=== PATIENT | female | born 1950 | race Two or more races ===

== ENCOUNTER 2022-06-15 12:49 | Emergency (ER) | payer OTHER ==
[~2022-06-15] VITALS: Ht 152.4 cm; Wt 66.7 kg
[2022-06-15] MEDS ORDERED: ROSUVASTATIN CA20 MG PO (13:39)
[2022-06-15] MEDS ORDERED: LOSARTAN-HCTZ1 EACH PO (13:39)
[2022-06-15] MEDS ORDERED: VISINE DRY EYE30 ML OP (15:36)
== END 2022-06-15 15:49 | disposition home or self-care (01) ==
LOC: ER 12:49
DX: H11.32 Conjunctival hemorrhage, left eye (principal); I10 Essential (primary) hypertension

== ENCOUNTER 2023-06-10 06:18 | Emergency (ER) | payer OTHER ==
[~2023-06-10] VITALS: Ht 162.6 cm; Wt 79.4 kg
[~2023-06-10 06:18] MED LIST: LOSARTAN-HCTZ1 EACH PO; ROSUVASTATIN CA20 MG PO; VISINE DRY EYE30 ML OP
[2023-06-10 08:58] LABS: HEMATOCRIT 43.4 % (36.0-45.00); HEMOGLOBIN 14.7 g/dL (12.0-15.00); MEAN CELL VOLUME 88.6 fL (80.00-100.00); MEAN CORPUSCULAR HGB CONC 33.9 g/dl (32.0-36.0); PLATELET COUNT 347 K/uL (150-450); RED CELL DISTRIBUTION WIDTH 14.1 % (11.5-14.5)
[2023-06-10] MEDS ORDERED: VENTOLIN HFA18 GM IH (09:22)
[2023-06-10] MEDS ORDERED: PAXLOVID 300-11 EAC1 PO (09:22)
[2023-06-10] MEDS ORDERED: TUSNEL LIQUID178 ML PO (09:22)
== END 2023-06-10 09:44 | disposition home or self-care (01) ==
LOC: ER 06:18
PROVIDERS: General Practice
DX: U07.1 COVID-19 (principal); I10 Essential (primary) hypertension
CPT/HCPCS: 36415; 96372; 99284; J1100

== ENCOUNTER → 2023-06-26 | Emergency (ER) | payer OTHER ==
[~2023-06-26] VITALS: Ht 154.9 cm; Wt 66.7 kg
[~2023-06-26] MED LIST changes: +PAXLOVID 300-11 EAC1 PO; +TUSNEL LIQUID178 ML PO; +VENTOLIN HFA18 GM IH
[2023-06-26 09:07] LABS: HEMATOCRIT 44.2 % (36.0-45.00); HEMOGLOBIN 15.5 g/dL (12.0-15.00); MEAN CELL VOLUME 85.2 fL (80.00-100.00); MEAN CORPUSCULAR HEMOGLOBIN 29.8 pg (27.00-32.0); RED BLOOD COUNT 5.19 M/uL (4.00-6.00); RED CELL DISTRIBUTION WIDTH 13.7 % (11.5-14.5)
[2023-06-26 09:26] LABS: CALCIUM 9.3 mg/dL (8.5-10.1); CREATININE SERUM 0.72 mg/dL (0.55-1.02); GFR 80.08; POTASSIUM 3.01 mEq/L (3.5-5.1)
[2023-06-26 09:40] LABS: PLATELET COUNT 98 K/uL (150-450)
== END | disposition home or self-care (01) ==
LOC: ER 08:27
PROVIDERS: Emergency Medicine
DX: K52.89 Other specified noninfective gastroenteritis and colitis (principal)

== ENCOUNTER 2024-10-06 15:52 | Outpatient (CLI) | payer OTHER | END 2024-10-06 15:59 | disposition home or self-care (01) | LOC: RAD 15:52 | PROVIDERS: ATTEND Internal Medicine | DX: M25.571 Pain in right ankle and joints of right foot (principal); M54.50 Low back pain, unspecified ==